=== PATIENT | female | born 1975 | race African-American/Black ===

== ENCOUNTER 2019-02-16 15:42 | Emergency (ER) | payer SELFPAY ==
[~2019-02-16] VITALS: Ht 170.2 cm; Wt 116.1 kg
[2019-02-16] MEDS ORDERED: ALBUTEROL SULF 0.083% NEB SOLN 3 ML NEB NEB STA (15:58)
[2019-02-16] MEDS ORDERED: IPRATROPIUM BROMIDE 0.02% 2.5 ML NEB NEB STA (15:58)
[2019-02-16] MEDS ORDERED: DEXAMETHASONE SOD PHOS 10 MG/1 ML VIAL IM ONE (16:00)
[2019-02-16 16:37] LABS: STREPTOCOCCUS GRP A ANTIGEN POSITIVE (NEGATIVE)
[2019-02-16 16:55] LABS: INFLUENZAE A&B ANTIGEN (RAPID) NEGATIVE (NEGATIVE)
[2019-02-16] MEDS ORDERED: PENICILLIN G BENZATHINE LA 1.2 MU TBX IM ONE (17:22)
--- NOTE | 2019-02-16 17:27 | Diagnostic Imaging Report ---
Chest, PA and lateral. History: Fever cough. Comparison: None available. Discussion: Line the heart is within normal limits of size. The mediastinal and hilar contours are unremarkable. The lungs are clear. There is no consolidation, pleural effusion, or pneumothorax. No acute osseous abnormalities. IMPRESSION: No radiographic evidence of acute cardiopulmonary abnormality. Signed by: Leonard Rowell MD on 02/16/2019 5:24 PM
[2019-02-16 18:08] VITALS: BP 143/62
== END 2019-02-16 18:30 | disposition home or self-care (01) ==
LOC: ER 15:42
DX: R50.9 Fever, unspecified (principal); R05 Cough; J20.9 Acute bronchitis, unspecified; J02.0 Streptococcal pharyngitis
CPT/HCPCS: 71046; 83518; 87400; 94640; 99284; J0561; J1100